=== PATIENT | male | born 1935 | race Caucasian/White ===

== ENCOUNTER → 2019-10-11 07:22 | Outpatient (CLI) | payer OTHER, SELFPAY ==
--- NOTE | 2019-10-11 | DI.ECHO.S_ITS ---
[facility] +---------+ [facility] +---------+ : : [address] : : : : [id number] : : : : Phone: [phone]+ Echocardiogram Report + + :Name: BRIAN GAITAN Study Date: 10/11/2019 Height: 68 in : :[facility] Weight: 187 lb : : Gender: Male BSA: 2.0 m2 : :: 1935 Age: 84 yrs BP: 142/90 mmHg: :Reason For Study: CAD : : Performed By: Adria Castro : :Referring: FREIDA ANDERSON : + + Interpretation Summary The left ventricle is normal in size. The ejection fraction is estimated to be 50-55%. The right ventricle is normal size. The right ventricular systolic function is normal. There is mild aortic regurgitation. There is mild mitral regurgitation. There is mild tricuspid regurgitation. Procedure: A two-dimensional transthoracic echocardiogram with color flow and Doppler was performed. The study quality was technically adequate. There is no prior echocardiogram noted for this patient. The patient was in normal sinus rhythm during the exam. Left Ventricle: The left ventricle is normal in size. There is mild concentric left ventricular hypertrophy. There is no thrombus. The ejection fraction is estimated to be 50-55%. There is basal inferior wall hypokinesis. There is basal inferoseptal wall hypokinesis. Diastolic parameters suggest a relaxation abnormality of the left ventricle, consistent with probable normal filling pressures. Right Ventricle: The right ventricle is normal size. The right ventricular systolic function is normal. Atria: The left atrial size is normal. Right atrial size is normal. The interatrial septum is intact with no evidence for an atrial septal defect. Mitral Valve: The mitral valve leaflets appear mildly thickened, but open well. There is mild mitral annular calcification. There is mild mitral regurgitation. Aortic Valve: There is mild aortic valve sclerosis. The aortic valve is trileaflet. The aortic valve opens well. There is discrete nodular thickening of the non- coronary cusp. There is mild aortic regurgitation. Tricuspid Valve: The tricuspid valve is normal. There is mild tricuspid regurgitation. Pulmonary artery pressures cannot be estimated because of the lack of a measurable TR jet velocity. Pulmonic Valve: The pulmonic valve leaflets are thin and pliable; valve motion is normal. There is trace pulmonic regurgitation. Great Vessels: The aortic root is normal size. The dimensions of the ascending aorta are normal. The pulmonary artery is normal size. The inferior vena cava was not visualized. Pericardium/ Pleura There is no pericardial effusion. There is an anterior echo-free space consistent with a fat pad. There is no pleural effusion. MMode/2D Measurements & Calculations LVIDd: 5.1 cm LVOT diam: 2.2 cm LVIDs: 3.8 cm Ao root diam: 3.6 cm FS: 25.8 % asc Aorta Diam: 3.5 cm EPSS: 1.5 cm IVSd: 1.3 cm LVPWd: 1.2 cm LV goel. diameter/BSA (cm/m^2): 2.6 LV sys. diameter/BSA (cm/m^2): 1.9 LA A2 area: 18.3 cm2 RA long axis: 5.3 cm LA A4 area: 21.2 cm2 RA area: 15.7 cm2 LA length (vol): 5.1 cm RA vol: 39.7 ml LA vol: 64.7 ml RA : 20.0 ml/m2 LA vol index: 32.6 ml/m2 TAPSE: 1.8 cm Doppler Measurements & Calculations Ao V2 max: 114.0 cm/sec LVOT Max Joaquim: 93.7 cm/sec Ao V2 mean: 84.4 cm/sec LV V1 max P.5 mmHg Ao max P.2 mmHg LV V1 VTI: 20.6 cm Ao mean P.2 mmHg MICHAELA(I,D): 3.4 cm2 Ao V2 VTI: 22.9 cm MICHAELA(V,D): 3.1 cm2 sev ratio: 0.90 MICHAELA indexed to BSA (cm^2/m^2): 1.7 AI P1/2t: 493.7 msec AI dec slope: 262.4 cm/sec2 MV E max joaquim: 49.5 cm/sec TR max joaquim: 223.6 cm/sec MV A max joaquim: 97.0 cm/sec TR max P.0 mmHg MV E/A: 0.51 PA V2 max: 74.1 cm/sec Med Peak E' Joaquim: 5.7 cm/sec PA V2 mean: 53.3 cm/sec E/E' med: 8.7 PA mean P.3 mmHg Lat Peak E' Joaquim: 6.5 cm/sec PA Accel Time: 0.09 sec E/E' lat: 7.6 E/e' average: 8.2 MV dec time: 0.19 sec SV([facility]): 77.9 ml Reading Physician:06:44 PM
== END ==
PROVIDERS: Visit Provider Physician Assistant
DX: I08.3 Combined rheumatic disorders of mitral, aortic and tricuspid valves (principal); I25.10 Atherosclerotic heart disease of native coronary artery without angina pectoris
CPT/HCPCS: 93306

== ENCOUNTER → 2020-12-26 15:37 | Outpatient (CLI) | payer OTHER, SELFPAY ==
--- NOTE | 2020-12-26 15:39 | DI.ECHO.S_ITS ---
Version: 1 Study ID: [id number] [place] [address] Name: BRIAN GAITAN Study Date: 12/26/2020, 4: 16 PM : 1935 BP: 143 / 87 mmHg Gender: Male Height: 68 in Age: 85 Years Weight: 192 lb BSA: 2.01 mA? Ordering: FREIDA ANDERSON Referring: FREIDA ANDERSON Clinician: Chantell Velez Reason For Study: HEART DISEASE History: Summary Statements Normal sinus rhythm with occasional PVC's. Wide QRS complexes. Normal LV size and wall thickness. Low normal EF estimated at 50-55%. Stage I diastolic dysfunction. Mild LA enlargement and borderline RA enlargement. Aortic valve is a trileaflet structure with moderately thickened left coronary leaflet characterized by a nodular thickening. No significant valvular abnormalities. Compared to prior study 10/11/2019 basal inferoseptal hypokinesis is no longer appreciated. Otherwise no changes have occurred. Procedure: A two-dimensional transthoracic echocardiogram with color flow and Doppler was performed. The study quality was technically adequate. Comparison is made with the echocardiogram of 10/11/2019. The patient was in sinus rhythm with heart rates between 64-75 bpm during the exam. Left Ventricle: The ejection fraction is estimated to be 50-55%. The left ventricle is normal in size and wall thickness. Right Ventricle: The right ventricle is normal in size and function. Atria: There is no Doppler evidence for an interatrial shunt. The left atrium is mildly dilated. The right atrium is borderline dilated. Mitral Valve: There is trace mitral regurgitation. There is mild mitral annular calcification. The mitral valve leaflets appear mildly thickened, but open well. Aortic Valve: There is mild aortic regurgitation. There is no aortic valve stenosis. The aortic valve is trileaflet. The aortic valve is slightly calcified. There is discrete nodular thickening of the non- coronary cusp. Tricuspid Valve: There is mild tricuspid regurgitation. Pulmonary artery pressures cannot be estimated because of the lack of a measurable TR jet velocity but the IVC suggests a CVP of around 3 mmHg. The tricuspid valve is normal in structure and function. Pulmonic Valve: There is no pulmonic valvular regurgitation. The pulmonic valve leaflets are thin and pliable; valve motion is normal. Great Vessels: The ascending aorta is mildly enlarged. The aortic root is normal size. The IVC is of normal diameter and collapses greater than 50% with a sniff. This suggests a low right atrial pressure of 3 mm Hg. Pericardium/ Pleura: There is no pericardial effusion. There is no pleural effusion. 2D and M-Mode Measurements and Calculations LVIDd: 5.7 cm AoV Openin.06 cm LVIDs: 4.3 cm LVOT diam: 2.02 cm IVSd: 0.98 cm Ao root diam: 3.7 cm LVPWd: 0.85 cm asc Aorta Diam: 3.7 cm LV goel. diameter/BSA (cm/m^2): 2.8 Ao Arch Diam (Prox Trans): 3.6 cm LV sys. diameter/BSA (cm/m^2): 2.12 EPSS: 1.80 cm RVD1 (basal): 2.6 cm IVC diam: 1.52 cm TAPSE: 1.82 cm LA A4 area: 23.0 high school admissions representative? RA area: 20.3 high school admissions representative? LA A2 area: 23.1 high school admissions representative? RA long axis: 5.4 cm LA length (vol): 5.4 cm RA vol: 64.9 ml LA vol: 82.8 ml RA : 32.3 ml/mA? LA vol index: 41.2 ml/mA? Doppler Measurements and Calculations Ao V2 max: 105.3 cm/sec LVOT Max Joaquim: 69.4 cm/sec Ao V2 mean: 70.7 cm/sec LV V1 max P.93 mmHg Ao V2 VTI: 23.4 cm LV V1 VTI: 14.3 cm Ao max P.4 mmHg Ao mean P.28 mmHg MICHAELA(I,D): 1.97 high school admissions representative? MICHAELA(V,D): 2.12 high school admissions representative? MICHAELA indexed to BSA (cm^2/m^2): 0.98 sev ratio: 0.61 MV E max joaquim: 56.0 cm/sec MV dec time: 0.28 sec MV A max joaquim: 85.7 cm/sec MV E/A: 0.65 Med Peak E' Joaquim: 4.8 cm/sec Lat Peak E' Joaquim: 8.4 cm/sec E/e' average: 9.2 TR max joaquim: 268.5 cm/sec PA mean P.76 mmHg TR max P.8 mmHg PA V2 max: 58.5 cm/sec Electronically signed by: Shaina Riggins M.D. 12/26/2020, 8: 31 PM
== END ==
PROVIDERS: Visit Provider Orthopaedic Surgery
DX: I08.2 Rheumatic disorders of both aortic and tricuspid valves (principal); I77.89 Other specified disorders of arteries and arterioles
CPT/HCPCS: 93306